=== PATIENT | male | born 1940 | race Caucasian/White ===

== ENCOUNTER 2018-12-10 17:59 | Inpatient (IN) | payer MEDICARE ==
[~2018-12-10] VITALS: Ht 180.3 cm; Wt 83.0 kg
[2018-12-10] MEDS ORDERED: FERR325T24 PO (18:04)
[2018-12-10] MEDS ORDERED: ACET325C5 PO (18:04)
[2018-12-10] MEDS ORDERED: SENN-168 PO (18:04)
[2018-12-10] MEDS ORDERED: OLAN5TAB3 PO (18:04)
[2018-12-10] MEDS ORDERED: DOCU-141 PO (18:04)
--- NOTE | 2018-12-10 18:10 | NUR ---
PATIENT IS AWAKE AND ALERT. PLACED NEAR NURSES STATION. DIAGNOSTIC TESTS IN PROCESS....
[2018-12-10 18:50] LABS: BASOPHILS % (AUTO) 0.6 % (0.0-2.0); EOSINOPHILS # (AUTO) 0.2 K/uL (0.0-0.7); EOSINOPHILS % (AUTO) 3.6 % (0.0-7.0); HEMATOCRIT 34.4 % (36.7-47.1); HEMOGLOBIN 11.2 g/dL (12.5-16.3); LYMPHOCYTES # (AUTO) 0.9 K/uL (20.0-40.0); LYMPHOCYTES % (AUTO) 15.9 % (20.5-51.5); MEAN CORPUSCULAR HEMOGLOBIN 27.9 uug (23.8-33.4); MEAN CORPUSCULAR HGB CONC 33 g/dL (32.5-36.3); MEAN CORPUSCULAR VOLUME 85.7 fL (73.0-96.2); MONOCYTES # (AUTO) 0.3 K/uL (2.0-10.0); MONOCYTES % (AUTO) 5.9 % (0.0-11.0); NEUTROPHILS # (AUTO) 4.3 K/uL (1.8-8.9); PLATELET COUNT (AUTO) 182 K/uL (152-348); RED BLOOD CELL COUNT(AUTO) 4.01 MIL/uL (4.06-5.63); WHITE BLOOD COUNT (AUTO) 5.8 K/uL (3.6-10.2)
[2018-12-10 18:57] LABS: CARBON DIOXIDE 28 mmol/L (21-32); CHLORIDE 104 mmol/L (98-107); CREATININE 0.8 mg/dL (0.6-1.3); GLUCOSE 129 mg/dL (74-106); POTASSIUM 4.3 mmol/L (3.5-5.1); UREA NITROGEN, BLOOD 18 mg/dL (7-18)
[2018-12-10 19:00] LABS: ETHANOL < 3 MG/DL (0-0)
[2018-12-10 19:02] LABS: ACETAMINOPHEN < 2.0 ug/mL (10-30); ALANINE AMINOTRANSFERASE 16 U/L (16-63); ALKALINE PHOSPHATASE 100 U/L (50-136); ASPARTATE AMINOTRANSFERASE 21 U/L (15-37); BILIRUBIN,DIRECT 0.1 mg/dL (0.0-0.2); BILIRUBIN,TOTAL 0.2 mg/dL (0.2-1.0); TOTAL PROTEIN, SERUM 8.2 g/dL (6.4-8.2)
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
[2018-12-10 19:29] LABS: *BILIRUBIN,URIN NEGATIVE (NEGATIVE); *BLOOD, URINE NEGATIVE (NEGATIVE); *CLARITY,URINE CLEAR (CLEAR); *COLOR,URINE YELLOW (YELLOW); *KETONES,URINE NEGATIVE (NEGATIVE); *UROBILINOGEN,URINE 0.2 E.U./dl (NORMAL); LEUKOCYTE ESTERASE ,URINE NEGATIVE (NEGATIVE); NITRITE, URINE NEGATIVE (NEGATIVE); PH,URINE 5.5 (5.0-8.0); UGLUCOSE NEGATIVE (NEGATIVE)
--- NOTE | 2018-12-10 19:35 | NUR ---
Patient medically cleared by ERMD.
[2018-12-10 19:43] LABS: *AMPHETAMINE, URINE NEGATIVE (NEGATIVE); *BARBITURATE, URINE NEGATIVE (NEGATIVE); *CANNABINOID, URINE NEGATIVE (NEGATIVE); *COCCAINE, URINE NEGATIVE (NEGATIVE); *OPIATE, URINE NEGATIVE (NEGATIVE); *PHENCYCLIDINE SCREEN,URINE NEGATIVE (NEGATIVE)
[2018-12-10] MEDS ORDERED: MAG HYDROX/AL HYDROX/SIMETH 30 ML LIQUID UDC PO PRN (20:00)
[2018-12-10] MEDS ORDERED: LORAZEPAM 0.5 MG TABLET PO PRN (20:00)
[2018-12-10] MEDS ORDERED: MAGNESIUM HYDROXIDE 30 ML LIQUID UDC PO PRN (20:00)
[2018-12-10] MEDS ORDERED: ACETAMINOPHEN 325 MG TABLET PO PRN (20:00)
[2018-12-10] MEDS ORDERED: TEMAZEPAM 7.5 MG CAPSULE PO PRN (20:00)
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
[2018-12-10] MEDS: SENNOSIDES 1 TABLET PO SCH (23:00)
[2018-12-10] MEDS: FERROUS SULFATE 325 MG TABEC PO SCH (23:00)
[2018-12-10] MEDS: DOCUSATE SODIUM 100 MG CAPSULE PO SCH (23:00)
--- NOTE | 2018-12-11 06:54 | NUR ---
PATIENT SLEPT FOR APPROX 0.45 MIN THROUGH THE NIGHT. HE REFUSED ATIVAN PO PRN. HE REFUSED TEMAZEPAM PO PRN FOR INSOMNIA. HE STATED, "I DON'T TAKE MEDICATION BECAUSE THE ARE POISONING ME". HE REFUSED BLOOD DRAWN AND A SHOWER. NOTED EASILY IRRITABLE WHEN REDIRECTED. WILL CONTINUE TO MONITOR.
[2018-12-11 07:57] VITALS: BP 150/73
[2018-12-11] MEDS: FERROUS SULFATE 325 MG TABEC PO SCH (08:32)
[2018-12-11] MEDS: DOCUSATE SODIUM 100 MG CAPSULE PO SCH ×2 (08:32→16:23)
[2018-12-11] MEDS: OLANZAPINE ZYDIS 5 MG TAB.RAPDIS PO SCH ×2 (12:07→16:23)
[2018-12-11 16:38] VITALS: BP 151/82
[2018-12-11] MEDS: SENNOSIDES 1 TABLET PO SCH (20:08)
[2018-12-11 20:15] VITALS: BP 134/54
[2018-12-12 07:30] VITALS: BP 144/74
[2018-12-12] MEDS: FERROUS SULFATE 325 MG TABEC PO SCH (08:41)
[2018-12-12] MEDS: DOCUSATE SODIUM 100 MG CAPSULE PO SCH ×2 (08:41→16:17)
[2018-12-12] MEDS: OLANZAPINE ZYDIS 5 MG TAB.RAPDIS PO SCH ×3 (08:41→16:17)
[2018-12-12 15:33] VITALS: BP 121/53
[2018-12-12 20:25] VITALS: BP 138/67
[2018-12-12] MEDS: SENNOSIDES 1 TABLET PO SCH (21:00)
[2018-12-12] MEDS: MUPIROCIN 2% OINT 22 GM TUBE NS SCH (21:00)
[2018-12-13 07:30] VITALS: BP 129/68
[2018-12-13] MEDS: FERROUS SULFATE 325 MG TABEC PO SCH (09:00)
[2018-12-13] MEDS: OLANZAPINE ZYDIS 5 MG TAB.RAPDIS PO SCH ×3 (09:00→16:24)
[2018-12-13] MEDS: MUPIROCIN 2% OINT 22 GM TUBE NS SCH ×2 (09:00→21:16)
[2018-12-13] MEDS: DOCUSATE SODIUM 100 MG CAPSULE PO SCH ×2 (09:00→16:24)
--- NOTE | 2018-12-13 11:20 | NUR ---
Initial Discharge Instructions: Patient currently resides at [facility] [[address] [facility] [address]; ]. Per patient he does not want to return to [facility] upon discharge. SANDRA Director Regulatory Agency spoke with [facility] sterile process coordinator, Laly who expressed that the pts insurance benefits and finances are limited, and that his bed is currently not on hold for him. SANDRA Director Regulatory Agency also spoke with [facility] SANDRA Penn to gather any additional information about the patient including a contact center analyst. Fili stated that he called [facility] and was only able to gather that the pt. has been homeless for 3 years and cannot name a contact center analyst. No additional information gathered. SANDRA Dockery and other SW will continue to collaborate with interdisciplinary team to ensure safe and proper discharge planning and initiate placement search.
[2018-12-13 16:31] VITALS: BP 134/69
[2018-12-13 20:00] VITALS: BP 131/56
[2018-12-13] MEDS: SENNOSIDES 1 TABLET PO SCH (21:00)
[2018-12-14 07:30] VITALS: BP 114/57
[2018-12-14] MEDS: DOCUSATE SODIUM 100 MG CAPSULE PO SCH ×2 (09:00→17:00)
[2018-12-14] MEDS: OLANZAPINE ZYDIS 5 MG TAB.RAPDIS PO SCH ×3 (09:00→17:00)
[2018-12-14] MEDS: MUPIROCIN 2% OINT 22 GM TUBE NS SCH ×2 (09:00→21:10)
[2018-12-14] MEDS: FERROUS SULFATE 325 MG TABEC PO SCH (09:00)
--- NOTE | 2018-12-14 15:45 | NUR ---
PROCESS GROUP NOTE: Patients were asked to discuss their thoughts on what knowledge or "life lessons" they would pass on to a younger generation. Subjective: "..." Objective: bull gang worker arrived at patient bedside to invite patient to group. Patient was asleep and unable to be woken up. Assessment: Patient appeared to be sleeping deeply and was observed snoring. bull gang worker did not disturb. Plan: bull gang worker will continue to encourage group attendance as scheduled. bull gang worker will continue to provide encouragement and support during MHU admission
[2018-12-14 16:00] VITALS: BP 137/67
--- NOTE | 2018-12-14 17:26 | NUR ---
Received patient alert in Bed, on MRSA contact isolation, remains asymptomatic, patient self care ambulatory, refuses his medication even after explaining the risk and benefit of medication, patient would be irritated when tries to explain regarding the importance of his medication, will continue to monitor
[2018-12-14 19:58] VITALS: BP 133/60
[2018-12-14] MEDS: SENNOSIDES 1 TABLET PO SCH (21:00)
--- NOTE | 2018-12-14 21:30 | NUR ---
RECEIVED PATIENT PACING THE HALLWAY. HE IS NOTED A/O X 3, ABLE TO AMBULATE WITH STEADY GAIT. HE CONTINUE ON CONTACT ISOLATION PRECAUTION FOR MRSA OF THE NARES. HE IS COMPLIANT WITH TOPICAL ATB TX BACTROBAN AND COMPLIANT WITH CONTACT PRECAUTION BY WEARING A MASK WHILE IN THE HALLWAY. HE IS NOTED CALM AND PLEASANT UPON APPROACHED; HOWEVER, WHEN REDIRECTED HE BECAME EASILY IRRITABLE DEFENSIVE AND ARGUMENTATIVE. POOR INSIGHT AND JUDGMENT NOTED TO THE REASON FOR HIS ADMISSION TO [facility]. CONTINUE REFUSING PO MEDICATIONS VAHE IS SCHEDULED FOR TOMORROW AT 1400. CONTINUE DELUSIONAL; HOWEVER, NO AGGRESSIVE/COMBATIVE BX NOTED OR REPORTED AT THIS TIME. WILL CONTINUE TO MONITOR.
[2018-12-15 07:30] VITALS: BP 121/57
[2018-12-15] MEDS: FERROUS SULFATE 325 MG TABEC PO SCH ×2 (08:46→09:00)
[2018-12-15] MEDS: OLANZAPINE ZYDIS 5 MG TAB.RAPDIS PO SCH ×5 (08:46→20:45)
[2018-12-15] MEDS: DOCUSATE SODIUM 100 MG CAPSULE PO SCH ×3 (08:46→16:53)
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
[2018-12-15] MEDS: MUPIROCIN 2% OINT 22 GM TUBE NS SCH ×2 (09:02→20:45)
[2018-12-15] MEDS ORDERED: OLANZAPINE 10 MG VIAL IM PRN (15:00)
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
[2018-12-15 16:00] VITALS: BP 109/40
--- NOTE | 2018-12-15 17:45 | NUR ---
Gps/Independent Video Producer- Patient appeared to be quiet this pm, stayed in bed resting , but still refusing routine meds. " i dont want to talk to you , you all the same, likes to torture people ".
[2018-12-15] MEDS: SENNOSIDES 1 TABLET PO SCH (20:51)
[2018-12-15 21:20] VITALS: BP 135/60
--- NOTE | 2018-12-16 05:52 | NUR ---
GPS: REMAIN UNCOOPERATIVE WITH CARE AND SHOWER THIS MORNING. PATIENT SLEPT FOR APPROX 4:30 HRS THROUGH THE NIGHT. REFUSED TEMAZEPAM PO PRN FOR INSOMNIA. HE STATED, "I DON'T TAKE MEDICATION BECAUSE THE ARE POISONING ME". EASILY IRRITABLE WHEN REDIRECTED. WILL CONTINUE TO MONITOR.
[2018-12-16 07:30] VITALS: BP 103/43
[2018-12-16] MEDS: FERROUS SULFATE 325 MG TABEC PO SCH (08:25)
[2018-12-16] MEDS: DOCUSATE SODIUM 100 MG CAPSULE PO SCH ×2 (08:26→18:15)
[2018-12-16] MEDS: MUPIROCIN 2% OINT 22 GM TUBE NS SCH ×2 (08:26→20:20)
[2018-12-16] MEDS: OLANZAPINE ZYDIS 5 MG TAB.RAPDIS PO SCH (08:26)
--- NOTE | 2018-12-16 10:29 | NUR ---
Firearms Report: SANDRA completed and submitted [employer] report for 5250 GD certification.
[2018-12-16] MEDS: FLUOCINONIDE 0.05% CREAM 30 GM TUBE TP SCH (11:57)
[2018-12-16] MEDS: CLOTRIMAZOLE 1% CREAM 30 GM TUBE TOP SCH (11:57)
[2018-12-16 16:03] VITALS: BP 138/67
[2018-12-16 20:00] VITALS: BP 123/60
[2018-12-16] MEDS: BENZTROPINE MESYLATE 0.5 MG TABLET PO SCH (20:12)
[2018-12-16] MEDS: risperiDONE 1 MG TABLET PO SCH (20:12)
[2018-12-16] MEDS: SENNOSIDES 1 TABLET PO SCH (20:12)
--- NOTE | 2018-12-17 06:07 | NUR ---
GPS: REMAIN COOPERATIVE WITH MEDICATIONS AND CARE. PATIENT SLEPT FOR APPROX 4 HRS THROUGH THE NIGHT. EASILY IRRITABLE WHEN REDIRECTED. NO AGGRESSIVE BEHAVIOR NOTED.WILL CONTINUE TO MONITOR.
[2018-12-17 07:53] VITALS: BP 138/74
[2018-12-17] MEDS: FERROUS SULFATE 325 MG TABEC PO SCH (08:11)
[2018-12-17] MEDS: risperiDONE 1 MG TABLET PO SCH ×2 (08:11→20:52)
[2018-12-17] MEDS: MUPIROCIN 2% OINT 22 GM TUBE NS SCH ×2 (08:11→20:52)
[2018-12-17] MEDS: BENZTROPINE MESYLATE 0.5 MG TABLET PO SCH ×2 (08:11→20:52)
[2018-12-17] MEDS: DOCUSATE SODIUM 100 MG CAPSULE PO SCH ×2 (08:11→16:45)
[2018-12-17] MEDS: FLUOCINONIDE 0.05% CREAM 30 GM TUBE TP SCH (08:18)
[2018-12-17] MEDS: CLOTRIMAZOLE 1% CREAM 30 GM TUBE TOP SCH (08:19)
[2018-12-17 16:48] VITALS: BP 108/53
[2018-12-17] MEDS: DIVALPROEX SPRINKLE 125 MG CAP.SPRINK PO SCH (20:51)
[2018-12-17] MEDS: SENNOSIDES 1 TABLET PO SCH (20:52)
[2018-12-17 22:05] VITALS: BP 123/61
[2018-12-18] MEDS: risperiDONE 1 MG TABLET PO SCH ×2 (08:27→20:04)
[2018-12-18] MEDS: BENZTROPINE MESYLATE 0.5 MG TABLET PO SCH ×2 (08:27→20:04)
[2018-12-18] MEDS: DIVALPROEX SPRINKLE 125 MG CAP.SPRINK PO SCH ×2 (08:27→17:18)
[2018-12-18] MEDS: DOCUSATE SODIUM 100 MG CAPSULE PO SCH ×2 (08:28→17:00)
[2018-12-18] MEDS: FERROUS SULFATE 325 MG TABEC PO SCH (08:28)
[2018-12-18 08:29] VITALS: BP 121/48
[2018-12-18] MEDS: CLOTRIMAZOLE 1% CREAM 30 GM TUBE TOP SCH (08:30)
[2018-12-18] MEDS: FLUOCINONIDE 0.05% CREAM 30 GM TUBE TP SCH (08:30)
[2018-12-18] MEDS: MUPIROCIN 2% OINT 22 GM TUBE NS SCH ×2 (08:38→20:05)
[2018-12-18 15:14] VITALS: BP 131/64
[2018-12-18 20:04] VITALS: BP 126/60
[2018-12-18] MEDS: SENNOSIDES 1 TABLET PO SCH (20:04)
[2018-12-19 07:30] VITALS: BP 136/76
[2018-12-19] MEDS: FERROUS SULFATE 325 MG TABEC PO SCH (08:29)
[2018-12-19] MEDS: BENZTROPINE MESYLATE 0.5 MG TABLET PO SCH ×2 (08:29→20:29)
[2018-12-19] MEDS: DIVALPROEX SPRINKLE 125 MG CAP.SPRINK PO SCH ×3 (08:29→16:08)
[2018-12-19] MEDS: risperiDONE 1 MG TABLET PO SCH ×2 (08:29→20:29)
[2018-12-19] MEDS: FLUOCINONIDE 0.05% CREAM 30 GM TUBE TP SCH (08:30)
[2018-12-19] MEDS: DOCUSATE SODIUM 100 MG CAPSULE PO SCH ×2 (08:30→16:08)
[2018-12-19] MEDS: CLOTRIMAZOLE 1% CREAM 30 GM TUBE TOP SCH (08:30)
[2018-12-19] MEDS: MUPIROCIN 2% OINT 22 GM TUBE NS SCH ×2 (08:31→20:29)
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
[2018-12-19 15:14] VITALS: BP 133/55
--- NOTE | 2018-12-19 18:02 | NUR ---
GPS: patient remained in the room through out the day. patient refuses to take a shower and remains unkempt. patient still demonstrates bizarre and paranoia behavior towards staff. Patient is compliant with medical treatment and medication administration. 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 Patient denies any pain or discomfort at this time. Patient is able to verbalize needs. Will continue to monitor the patient and endorse plan of care to night order selector.
[2018-12-19] MEDS: SENNOSIDES 1 TABLET PO SCH (20:29)
[2018-12-19 22:23] VITALS: BP 125/53
--- NOTE | 2018-12-20 06:00 | NUR ---
Received Pt pacing the hallway and responding to internal stimuli. Pt is easily irritable and has a fixed delusion that [place] has taken "everything" from him. Compliant with medications with prompting and encouragement. Paranoid and suspicious of staff, internally preoccupied. Remains on contact isolation precautions for MRSA of the nares. VS stable, denies pain, in no acute distress at during shift. Refused shower this morning.
[2018-12-20 08:01] VITALS: BP 92/54
[2018-12-20] MEDS: DOCUSATE SODIUM 100 MG CAPSULE PO SCH ×2 (08:19→17:11)
[2018-12-20] MEDS: BENZTROPINE MESYLATE 0.5 MG TABLET PO SCH ×2 (08:19→20:16)
[2018-12-20] MEDS: FERROUS SULFATE 325 MG TABEC PO SCH (08:20)
[2018-12-20] MEDS: risperiDONE 1 MG TABLET PO SCH ×2 (08:20→20:16)
[2018-12-20] MEDS: DIVALPROEX SPRINKLE 125 MG CAP.SPRINK PO SCH ×3 (08:20→17:11)
[2018-12-20] MEDS: FLUOCINONIDE 0.05% CREAM 30 GM TUBE TP SCH (08:25)
[2018-12-20] MEDS: CLOTRIMAZOLE 1% CREAM 30 GM TUBE TOP SCH (08:25)
[2018-12-20] MEDS ORDERED: PALIPERIDONE IM ONE ×2 (13:45→20:00)
[2018-12-20 15:29] VITALS: BP 105/50
--- NOTE | 2018-12-20 16:59 | NUR ---
Discharge Planning: fishing worker received confirmation from diana Marshall at [facility] [[address], [place] [address]; ], that patient has been accepted for placement at facility.
[2018-12-20 20:00] VITALS: BP 113/48
[2018-12-20] MEDS ORDERED: [UNRECOGNIZED DRUG - OTHER] IM ONE (20:00)
[2018-12-20] MEDS: SENNOSIDES 1 TABLET PO SCH (20:15)
--- NOTE | 2018-12-20 20:44 | NUR ---
Rec'd pt awake, in the dayroom watching TV. No s/s of acute distress noted. Verbally responsive. Took all due PO meds. Asked for ice cream for snack and seng well. All safety precautions in place. Does not appear to be responding to any internal stimuli at this time.
[2018-12-20] MEDS ORDERED: risperiDONE 0.5 MG TABLET PO SCH (21:00)
--- NOTE | 2018-12-21 06:26 | NUR ---
Pt slept x5hrs during shift. Woke up around 0400 and asked for water and crackers for snack. Provided as tolerated. Offered pt a shower however he continued to refuse and became agitated when we offered x2. No s/s of acute distress noted. All safety precautions in place. Will endorse to oncoming shift.
[2018-12-21 07:30] VITALS: BP 145/73
[2018-12-21] MEDS: DOCUSATE SODIUM 100 MG CAPSULE PO SCH ×2 (08:19→16:18)
[2018-12-21] MEDS: FERROUS SULFATE 325 MG TABEC PO SCH (08:20)
[2018-12-21] MEDS: BENZTROPINE MESYLATE 0.5 MG TABLET PO SCH ×2 (08:20→21:01)
[2018-12-21] MEDS: risperiDONE 1 MG TABLET PO SCH ×2 (08:20→21:02)
[2018-12-21] MEDS: DIVALPROEX SPRINKLE 125 MG CAP.SPRINK PO SCH ×3 (08:20→16:18)
[2018-12-21] MEDS ORDERED: PALIPERIDONE IM ONE (09:00)
[2018-12-21] MEDS: FLUOCINONIDE 0.05% CREAM 30 GM TUBE TP SCH (09:30)
[2018-12-21] MEDS: CLOTRIMAZOLE 1% CREAM 30 GM TUBE TOP SCH (09:30)
[2018-12-21 16:00] VITALS: BP 125/51
[2018-12-21] MEDS: LORAZEPAM 0.5 MG TABLET PO PRN ×2 (16:18→22:48)
[2018-12-21 20:29] VITALS: BP 131/66
[2018-12-21] MEDS: SENNOSIDES 1 TABLET PO SCH (21:01)
--- NOTE | 2018-12-22 02:38 | NUR ---
GPS/NSG Patient first observed in the room, with unkempt appearance, low mood, appeared to be confused in and out the room, wandering the unit. Patient refused to take a shower at first however with staff prompting patient finally agreed to shower. Patient still demonstrates bizarre and paranoid behavior towards staff. Patient is compliant with medical treatment and medication administration. Patient denies any pain or discomfort at this time. Patient is able to verbalize needs. Will continue to monitor the patient and endorse plan of care.
[2018-12-22 07:30] VITALS: BP 117/95
[2018-12-22] MEDS: DIVALPROEX SPRINKLE 125 MG CAP.SPRINK PO SCH ×2 (08:27→12:49)
[2018-12-22] MEDS: FERROUS SULFATE 325 MG TABEC PO SCH (08:27)
[2018-12-22] MEDS: DOCUSATE SODIUM 100 MG CAPSULE PO SCH (08:27)
[2018-12-22] MEDS: BENZTROPINE MESYLATE 0.5 MG TABLET PO SCH (08:27)
[2018-12-22] MEDS: risperiDONE 1 MG TABLET PO SCH (08:27)
[2018-12-22] MEDS: CLOTRIMAZOLE 1% CREAM 30 GM TUBE TOP SCH (08:28)
[2018-12-22] MEDS: FLUOCINONIDE 0.05% CREAM 30 GM TUBE TP SCH (08:28)
--- NOTE | 2018-12-22 09:51 | NUR ---
DISCHARGE NOTE: Patient will be discharged to [facility] [[address] [place] [address]; ] and transportation will be provided by ambulance. Please arrange ambulance transportation for this patient. Patient is alert and oriented x2-3, denies SI/HI, and is aware and agreeable with discharge plans. Patient will follow-up with Dr. Sarabia (secretary administrative assistant) and Dr. Butler (psychiatrist) at the facility. Patient has been provided with outpatient mental health resources to [facility] [ ], [facility] [ ], and the National Suicide Prevention Lifeline [ ]. Patient is homeless and has been provided with homeless resources including winter detention list, pharmacy locations, and mental and behavioral health resources. wireworker has completed the homeless discharge checklist and has had patient sign homeless consent form.
[2018-12-22 14:00] VITALS: BP 131/60
--- NOTE | 2018-12-22 14:31 | NUR ---
Gps/Optical Lens Manufacturing Tech- Called [facility], report was given to Nurse Arlene, informed pick up attendant time [id number]. All belongings given back to patient. In good spirit, denies any discomfort.
--- NOTE | 2018-12-22 14:46 | NUR ---
Gps?second language tutor- Discharged to [facility] via ambulance , in good spirit.
== END 2018-12-22 14:50 | DRG 885 ==
LOC: ER 18:03 → GPS 19:51
PROVIDERS: ADMIT Psychiatry & Neurology Psychosomatic Medicine; ATTEND Psychiatry & Neurology Psychosomatic Medicine
DX: F25.0 Schizoaffective disorder, bipolar type (principal); D50.9 Iron deficiency anemia, unspecified; K40.90 Unilateral inguinal hernia, without obstruction or gangrene, not specified as recurrent; Z22.322 Carrier or suspected carrier of Methicillin resistant Staphylococcus aureus; B35.1 Tinea unguium; B35.3 Tinea pedis; I10 Essential (primary) hypertension; F39 Unspecified mood [affective] disorder; S90.522A Blister (nonthermal), left ankle, initial encounter; X58.XXXA Exposure to other specified factors, initial encounter; Y93.9 Activity, unspecified; Y92.129 Unspecified place in nursing home as the place of occurrence of the external cause
CPT/HCPCS: 36415; 80307; 85025; 93005; A4663; G0480; G0480-TC; J2358